=== PATIENT | male | born 1975 | race Caucasian/White ===

== ENCOUNTER 2017-06-22 12:50 | Emergency (ER) | payer OTHER ==
[~2017-06-22] VITALS: Ht 157.5 cm; Wt 54.9 kg
[~2017-06-22 12:50] MED LIST: ADULT MULTI G200 MCG PO; ALEVE220 M2 PO; ALEVE220 MG PO; HYDROCODON-ACE1 EAC7 PO; LEVAQUIN500 MG PO; LEVAQUIN750 MG PO; MESTINON60 MG PO; RANITIDINE HCL150 MG PO; VITAMIN C250 M1 PO
[2017-06-22 13:36] LABS: ADD MIUA? YES; BILIRUBIN NEGATIVE; BLOOD MODERATE; GLUCOSE (STRIP) NEGATIVE; KETONES 80; LEUKOCYTES LARGE; NITRITE NEGATIVE; PROTEIN (STRIP) >=500; SPECIFIC GRAVITY 1.019 (1.000-1.030); UROBILINOGEN 0.2 MG/DL (0.2-1.0)
[2017-06-22 13:38] LABS: COLOR DK YELLOW ((YELLOW))
[2017-06-22 13:51] LABS: HEMATOCRIT 46.7 % (38.0-50.0); MCH 29.9 PG (29.0-34.0); MCHC 33.8 G/DL (30.0-36.0); MCV 88.3 FL (86-99); MEAN PLAT.VOLUME 9.9 uM^3 (9.0-12.4); PLATELET COUNT 314 K/uL (156-360); RBC DIS.WIDTH-CV 12.8 % (11.8-14.6); RBC DIS.WIDTH-SD 41.4 % (39-53); RED BLOOD COUNT 5.29 M/uL (4.00-5.50)
[2017-06-22 13:52] LABS: BACTERIA 2+ /HPF; CALCIUM OXALATE CRYSTALS 3+ /HPF; EPITHELIAL CELLS 1+ /HPF; MUCUS 2+ /LPF; RED BLOOD CELLS TNTC /HPF (0-5); UCUL ADDED? YES; WHITE BLOOD CELLS TNTC /HPF (0-5)
[2017-06-22 14:00] LABS: CHLORIDE 103 mEq/L (99-109); POTASSIUM 4.3 mEq/L (3.7-5.4); SODIUM 139 mEq/L (136-147)
[2017-06-22 14:03] LABS: GLUCOSE 75 mg/dL (70-99)
[2017-06-22 14:04] LABS: ANION GAP 12 MEQ/L (2-14)
[2017-06-22 14:05] LABS: TOTAL BILIRUBIN 2.1 mg/dL (0.0-1.0)
[2017-06-22 14:06] LABS: ALKALINE PHOSPHATASE 122 IU/L (3-129); GFR ESTIMATE (CALCULATED) > 59 mL/min/
[2017-06-22 14:07] LABS: UREA NITROGEN (BUN) 24 mg/dL (9-23)
[2017-06-22] MEDS ORDERED: CIPRO500 MG PO (16:32)
[2017-06-22 16:51] VITALS: BP 137/103
== END 2017-06-22 16:52 | disposition home or self-care (01) ==
LOC: EME 12:50
DX: N39.0 Urinary tract infection, site not specified (principal); Z91.040 Latex allergy status; Z88.8 Allergy status to other drugs, medicaments and biological substances; Z88.1 Allergy status to other antibiotic agents; Z98.2 Presence of cerebrospinal fluid drainage device
CPT/HCPCS: 74176; 80053; 81003; 85027; 87077; 87086; 87186; 99281; 99283